=== PATIENT | female | born 1960 | race Two or more races ===

== ENCOUNTER 2017-08-28 17:58 | Emergency (ER) | payer MEDICARE, MEDICAID ==
[~2017-08-28] VITALS: Ht 162.6 cm; Wt 109.3 kg
[~2017-08-28 17:58] MED LIST: ALBU8.5H8 INH; AMLO10TA89 PO; CHOL100053 PO; FURO40TA4 PO; METO25TA6 PO; OMEP-50 PO; SEVE800T8 PO; VIT1TABL50 PO
[2017-08-28] MEDS ORDERED: meclizine 12.5mg tablet PO ONE (19:00)
[2017-08-28 19:27] LABS: BASOPHILS % (AUTO) 0.5 % (0-1); EOSINOPHILS # (AUTO) 0.3 X10'3 (0-0.9); EOSINOPHILS % (AUTO) 4.8 % (0-6); HEMATOCRIT 33.1 % (35.0-45.0); HEMOGLOBIN 11.1 g/dl (12.0-16.0); LYMPHOCYTES # (AUTO) 1.2 X10'3 (1.1-4.8); LYMPHOCYTES % (AUTO) 17.7 % (21-51); MEAN CORPUSCULAR HEMOGLOBIN 31.4 PG (27.0-31.0); MEAN CORPUSCULAR HGB CONC 33.3 % (33.0-36.5); MEAN CORPUSCULAR VOLUME 94.1 FL (78-98); MEAN PLATELET VOLUME 8.1 FL (7.4-10.4); MONOCYTES # (AUTO) 0.5 X10'3 (0-0.9); MONOCYTES % (AUTO) 7.1 % (2-12); NEUTROPHILS # (AUTO) 4.5 X10'3 (1.8-7.7); NEUTROPHILS % (AUTO) 69.9 % (42-75); PLATELET COUNT 234 X10'3 (140-440); RED BLOOD COUNT 3.52 X10'6 (4.20-5.60); RED CELL DISTRIBUTION WIDTH 13.9 % (11.5-14.5); WHITE BLOOD COUNT 6.5 X10'3 (4.5-11.0)
[2017-08-28 19:37] LABS: INR 0.9 INR; PARTIAL THROMBOPLASTIN TIME 26 SECONDS (22-32); PROTHROMBIN TIME 9.8 SECONDS (9.0-12.0)
[2017-08-28 19:49] LABS: ALANINE AMINOTRANSFERASE 29 U/L (12-78); ALBUMIN 3.6 G/DL (3.4-5.0); ALBUMIN/GLOBULIN RATIO 0.9 (1.1-1.5); ALKALINE PHOSPHATASE 112 IU/L (46-116); ANION GAP 14 (8-16); ASPARTATE AMINO TRANSFERASE 17 U/L (10-37); BILIRUBIN,TOTAL 0.5 MG/DL (0.1-1.0); BLOOD UREA NITROGEN 59 MG/DL (7-18); BUN/CREATININE RATIO 7.1 (6.6-38.0); CHLORIDE 101 MMOL/L (99-107); CREATININE 8.35 MG/DL (0.40-0.90); GLUCOSE 175 MG/DL (70-104); MAGNESIUM 2.3 MG/DL (1.5-2.4); POTASSIUM 5.9 MMOL/L (3.5-5.1); SODIUM 144 MMOL/L (135-145); TOTAL CARBON DIOXIDE 29.2 MMOL/L (24-32); TOTAL PROTEIN 7.5 G/DL (6.4-8.2); eGFR 5 ML/MIN
[2017-08-28] MEDS ORDERED: MECL12.584 PO (20:45)
[2017-08-28 20:58] VITALS: BP 183/87
== END 2017-08-28 21:02 | disposition home or self-care (01) ==
LOC: ER 17:59
DX: R42 Dizziness and giddiness (principal); I11.0 Hypertensive heart disease with heart failure; I50.9 Heart failure, unspecified; E11.9 Type 2 diabetes mellitus without complications; Z99.2 Dependence on renal dialysis
CPT/HCPCS: 36415; 70450; 71045; 80053; 82948; 83735; 84100; 84443; 84484; 85025; 85610; 85730; 93005; 99285; J8597

== ENCOUNTER 2020-01-03 08:54 | Emergency (ER) | payer MEDICARE, MEDICAID ==
[~2020-01-03] VITALS: Ht 162.6 cm; Wt 97.0 kg
[~2020-01-03 08:54] MED LIST changes: +MECL-184 PO
[2020-01-03 12:18] VITALS: BP 200/136
== END 2020-01-03 12:18 | disposition home or self-care (01) ==
LOC: ER 08:55
DX: R06.02 Shortness of breath (principal); I50.9 Heart failure, unspecified; I13.2 Hypertensive heart and chronic kidney disease with heart failure and with stage 5 chronic kidney disease, or end stage renal disease; E11.22 Type 2 diabetes mellitus with diabetic chronic kidney disease; N18.6 End stage renal disease; F41.9 Anxiety disorder, unspecified; Z90.49 Acquired absence of other specified parts of digestive tract; Z90.89 Acquired absence of other organs; Z98.890 Other specified postprocedural states; Z79.899 Other long term (current) drug therapy; Z99.2 Dependence on renal dialysis
CPT/HCPCS: 93005; 99283

== ENCOUNTER 2022-11-17 10:34 | Emergency (ER) | payer OTHER, MEDICARE, MEDICAID ==
[~2022-11-17] VITALS: Ht 162.6 cm; Wt 94.5 kg
[~2022-11-17 10:34] MED LIST changes: +ALBU8.5H17 INH; -ALBU8.5H8 INH; +LOP25T PO; -MECL-184 PO; +MECL-231 PO; -METO25TA6 PO; -OMEP-50 PO; +OMEP20CA16 PO
[2022-11-17 10:45] VITALS: BP 134/36
== END 2022-11-17 12:55 | disposition left against medical advice (07) ==
LOC: ER 10:35
DX: M54.2 Cervicalgia (principal); Z53.21 Procedure and treatment not carried out due to patient leaving prior to being seen by health care provider; V98.8XXA Other specified transport accidents, initial encounter; Y93.89 Activity, other specified; Y92.89 Other specified places as the place of occurrence of the external cause; Y99.8 Other external cause status
CPT/HCPCS: 99281